=== PATIENT | female | born 1960 | race African-American/Black ===

== ENCOUNTER 2018-01-12 21:19 | Observation (INO) ==
[2018-01-12 21:46] LABS: Hematocrit 38.4 % (37.0-47.0); Mean Corpuscular Hemoglobin 27.3 pg (27-31); Mean Corpuscular Hgb Conc 36.5 g/dl (32-36); Mean Platelet Volume 9.7 fl (8-12.5); Neutrophil # 2.9 K/mm3 (1.3-6.0); Neutrophil % 39.6 % (42-75.0); Platelet Count 288 K/mm3 (150-450); Red Blood Count 5.12 M/mm3 (4.2-5.4); Red Cell Distribution Width 13.6 % (11.5-14.0); White Blood Count 7.3 K/mm3 (4.0-10.5)
[2018-01-12 21:59] LABS: Prothrombin Time (Patient) 10.4 Seconds (9.0-11.0)
--- NOTE | 2018-01-12 22:02 | ERNOTE ---
Chest Pain/Cardiac HPI Chief Complaint: Chest Pain Time Seen by Provider: 01/12/18 21:52 Source: patient Exam Limitations: no limitations Immunizations: IMMUNIZATION HX Immunizations Up to Date Yes History of Influenza Vaccine Yes Hx Pneumococcal Vaccination No Allergies/Adverse Reactions: Allergies Iodinated Contrast- Oral and IV Dye Allergy (Verified 01/12/18 21:41) Iodine and Iodide Containing Produc Allergy (Verified 01/12/18 21:41) Home Medications: HOME MEDICATIONS Metoprolol Succinate [Toprol Xl] 100 mg PO DAILY 04/22/15 [Last Taken Unknown] Pantoprazole Sodium [Protonix] 40 mg PO DAILY 01/31/16 [Last Taken Unknown] aspirin 81 mg tablet,delayed release 81 mg PO DAILY 11/30/17 [Last Taken Unknown ] atorvastatin 40 mg tablet 40 mg PO DAILY 11/30/17 [Last Taken Unknown] clotrimazole-betamethasone 1 %-0.05 % topical cream 1 applic TP BID 11/30/17 [ Last Taken Unknown] gabapentin 300 mg capsule 300 mg PO TID 11/30/17 [Last Taken Unknown] lisinopril 40 mg tablet 40 mg PO DAILY 11/30/17 [Last Taken Unknown] montelukast 10 mg tablet 10 mg PO QPM 11/30/17 [Last Taken Unknown] lorazepam 1 mg tablet 1 mg PO BID PRN #60 tab 12/14/17 [Last Taken Unknown] methimazole 5 mg tablet 5 mg PO DAILY 12/16/17 [Last Taken Unknown] baclofen 10 mg tablet See Label Instructions PO BID PRN #30 tab 01/03/18 [Last Taken Unknown] hydrochlorothiazide 12.5 mg tablet 12.5 mg PO DAILY #30 tab 01/04/18 [Last Taken Unknown] Narrative: Pt states that she awoke at 03:00 this am with left sided chest pain and shortness of breath. It has persisted throughout the day and she went to work but could not work through the pain and came to the ED. Timing: constant Severity/Quality: moderate, pressure Location: left chest Chest Pain Radiation: shoulders - left Activities at Onset: sleep Modifying Factors - Improves: Present: nothing Nitro Today/Relief: 0.4 mg x 1, provided by EMS Aspirin Treatment Today: 325 mg x 1, provided by EMS Associated Symptoms: Present: headache, shortness of breath, diaphoresis - that is common for her. Absent: dizziness Review of Systems - Review of Systems Constitutional: Absent: recent illness, fever, chills EYE: Absent: vision changes Respiratory: Present: See HPI. Absent: cough Cardiology: Present: See HPI Gastrointestinal/Abdominal: Absent: nausea, vomiting, abdominal pain Genitourinary: Absent: dysuria Musculoskeletal: Present: back pain - chronic Skin: Absent: rash Neurological: Present: tingling - in left arm Endocrine: Present: excessive sweating - frequently Hematologic/Lymphatic: Absent: easy bruising, easy bleeding Medical History (Last Reviewed 01/12/18 @ 22:01 by Ronnie Santana DO) Weight loss (Acute) Onset Date: Unknown Tobacco abuse (Acute) Onset Date: Unknown Thyroid nodule (Acute) Onset Date: Unknown Shortness of breath (Acute) Onset Date: Unknown Postmenopausal bleeding (Acute) Onset Date: Unknown Onychomycosis (Acute) Onset Date: Unknown Night sweats (Acute) Onset Date: Unknown Lumbar back pain with radiculopathy affecting right lower extremity (Acute) Onset Date: Unknown Iliac artery stenosis, bilateral (Acute) Onset Date: Unknown Hyperthyroidism (Acute) Onset Date: Unknown Hypertension (Acute) Onset Date: Unknown Hyperlipidemia (Acute) Onset Date: Unknown Aneurysm (Acute) Onset Date: Unknown Graves disease (Acute) Onset Date: Unknown GERD (gastroesophageal reflux disease) (Acute) Onset Date: Unknown Uterine fibroid (Acute) Onset Date: Unknown Fatigue (Acute) Onset Date: Unknown Dysphasia (Acute) Onset Date: Unknown Dizziness (Acute) Onset Date: Unknown Difficulty swallowing (Acute) Onset Date: Unknown Surgical History: Surgical History (Last Reviewed 01/12/18 @ 22:01 by Ronnie Santana DO) H/O section Onset Date: ~1995 History of esophagogastroduodenoscopy (EGD) Onset Date: ~2013 History of salpingo-oophorectomy Onset Date: ~05/2017 Hx of cerebral aneurysm repair Onset Date: ~2006 S/P laparoscopic hysterectomy Onset Date: ~05/2017 S/P thyroid biopsy Onset Date: ~2014 breast cyst removal Onset Date: ~1982 Family History: Family History (Last Reviewed 01/12/18 @ 21:41 by Jamia Wilkins RN) Father Hypertension Prostate cancer Lung cancer Grandmother Cancer Mother Hypertension Liver cancer Sister Myocardial infarction Social History: Preferred Language Setswana Smoking Status Current every day smoker Psych History Hx of Anxiety Alcohol Use occasionally Drug Use none Physical Exam - Physical Exam General Appearance: Present: wd/wn, alert, no apparent distress Head Exam: Present: normal inspection, no evidence of injury Eye Exam: Normal inspection: bilateral Ears, Nose, Throat: Present: normal ENT inspection Neck: Present: normal inspection, supple Respiratory: Present: no respiratory distress, normal breath sounds, no accessory muscle use, lungs clear Cardiovascular/Chest: Present: regular rate, rhythm, no murmur, normal peripheral pulses, chest tenderness - left upper chest Gastrointestinal/Abdominal: Present: normal bowel sounds, nontender, nondistended, soft Back Exam: Present: normal inspection, normal range of motion Extremity Exam: Present: normal inspection, normal range of motion, no edema Neurological Exam: Present: alert, oriented, normal mood/affect, no motor/ sensory deficits Skin Exam: Present: normal color, warm/dry Lymphatic Exam: Present: no adenopathy ED Progress - Results and Orders Patient's Lab Results:: I have reviewed the patient's lab results. Results and Orders: Laboratory Tests 01/12/18 01/12/18 01/12/18 21:45 21:45 21:45 WBC 7.3 Hgb 14.0 Hct 38.4 Plt Count 288 PT 10.4 INR (Anticoag Therapy) 1.04 PTT ([place]) 27.4 Sodium 125 L Potassium 4.3 D Chloride 93 L BUN 13 D Creatinine 0.95 Random Glucose 158 H Calcium 8.4 AST 31 ALT 13 L Alkaline Phosphatase 129 Troponin I Less than 0.017 Albumin 3.1 L Ur Random Sodium 01/13/18 00:46 WBC Hgb Hct Plt Count PT INR (Anticoag Therapy) PTT ([place]) Sodium Potassium Chloride BUN Creatinine Random Glucose Calcium AST ALT Alkaline Phosphatase Troponin I Albumin Ur Random Sodium 23 - Vital Signs Patient's Vital Signs:: I have reviewed the patient's vital signs. Vital Signs: Vital Signs 01/12/18 21:19 01/12/18 21:25 Temperature 36.5 C Pulse Rate 69 69 Respiratory Rate 18 Blood Pressure 115/77 O2 Sat by Pulse Oximetry 96 - EKG EKG: NSR, other - early repolarization EKG read: Interp. by me - X-Ray X-Ray #1 X-Ray: chest Interpretation: Interp. by me X-ray Comments: No infiltrate or effusion. Normal cardiac size. - CT/Ultrasound CT/Ultrasound Narrative: CT head w/o. No acute changes. Changes of previous craniotomy and metallic clip in the right middle fossa. - Progress/Reassessment Chief Complaint: Chest Pain Progress Note-Subjective: 01/13/18 01:[address] Chappell about admission. She agrees with obs admission. Departure Clinical Impression: Hyponatremia Chest pain Qualifiers: Chest pain type: unspecified Qualified Code(s): R07.9 - Chest pain, unspecified - Departure Disposition: Still a patient Condition: Good Referrals: Ronna Cortés FNP [Primary Care Provider] -
[2018-01-12 22:05] LABS: ALT 13 U/L (19-67); AST 31 U/L (0-48); Albumin * 3.1 gm/dl (3.4-5.0); Alkaline Phosphatase * 129 U/L (50-170); BUN/Creatinine Ratio 13.7 (9.0-21.6); Bilirubin, Total 0.9 mg/dL (0.0-1.1); Blood Urea Nitrogen 13 mg/dL (3-23); Ca. Corrected For Albumin 8.8 mg/dL (8.4-10.2); Calcium * 8.4 mg/dL (7.9-10.9); Carbon Dioxide 23.3 mmol/L (24-32.6); Chloride 93 mmol/L (97-106); Glucose * 158 mg/dL (70-110); INR 1.04 INR (0.90-1.10); Partial Thrombolplastin Time 27.4 Seconds (24-32); Potassium 4.3 mmol/L (3.4-4.6); Sodium 125 mmol/L (132-142); Total Protein 7.2 gm/dL (6.2-8.2); Troponin I Less than 0.017 ng/mL (0.00-0.10)
[2018-01-13] MEDS ORDERED: KETOROLAC TROMETHAMINE 30 MG/ML VIAL ONE (00:27)
[2018-01-13] MEDS ORDERED: KETOROLAC TROMETHAMINE 30 MG/ML VIAL IV ONE (00:27)
[2018-01-13 04:19] LABS: Sodium 130 mmol/L (132-142); Troponin I Less than 0.017 ng/mL (0.00-0.10)
[2018-01-13] MEDS ORDERED: ACETAMINOPHEN 325 MG TABLET PO PRN (04:19)
[2018-01-13 05:04] LABS: Anion Gap 15.1 mmol/L (6.8-13.8); BUN/Creatinine Ratio 13.2 (9.0-21.6); Carbon Dioxide 23.3 mmol/L (24-32.6); Estimated Creat Clear 42.6; Potassium 3.4 mmol/L (3.4-4.6)
--- NOTE | 2018-01-13 08:14 | HP ---
Chief Complaint - Chief Complaint Date of Service: 01/13/18 Time of Service: 07:59 Chief Complaint: Chest pain History of Present Illness: The patient is an female who presented to the ED with complaints of chest tightness. She states the chest tightness is located substernal and radiates into her left arm. The tightness started Wednesday (01/12) around 3AM and woke the patient up from sleep. She states she had associated severe shortness of breath as well. She states she went to work but was unable to stand and work secondary to her shortness of breath and chest tightness so she came to the ED for further evaluation. She states that the chest tightness is never completely gone away since it started but she has noticed that it gets worse when she is up and moving around more active and is better when she is resting. She also states that since the chest tightness started on Wednesday morning, she has had nausea and vomiting as well as feeling really sweaty and thought she was having hot flashes. The patient also admits to having a right-sided headache. She states she has frequent chronic headaches but for the last 3 days her headache seems to be bothering her more than usual. Unfortunately I do not have any records but the patient states that she has a history of a ruptured brain aneurysm and underwent surgery for the aneurysm in August 2006. The patient is unsure where the aneurysm was and what treatment was completed. Medical History (Last Reviewed 01/13/18 @ 02:54 by Dorcas Paulino RN) Weight loss (Acute) Onset Date: Unknown Tobacco abuse (Acute) Onset Date: Unknown Thyroid nodule (Acute) Onset Date: Unknown Shortness of breath (Acute) Onset Date: Unknown Postmenopausal bleeding (Acute) Onset Date: Unknown Onychomycosis (Acute) Onset Date: Unknown Night sweats (Acute) Onset Date: Unknown Lumbar back pain with radiculopathy affecting right lower extremity (Acute) Onset Date: Unknown Iliac artery stenosis, bilateral (Acute) Onset Date: Unknown Hyperthyroidism (Acute) Onset Date: Unknown Hypertension (Acute) Onset Date: Unknown Hyperlipidemia (Acute) Onset Date: Unknown Aneurysm (Acute) Onset Date: Unknown Graves disease (Acute) Onset Date: Unknown GERD (gastroesophageal reflux disease) (Acute) Onset Date: Unknown Uterine fibroid (Acute) Onset Date: Unknown Fatigue (Acute) Onset Date: Unknown Dysphasia (Acute) Onset Date: Unknown Dizziness (Acute) Onset Date: Unknown Difficulty swallowing (Acute) Onset Date: Unknown Surgical History: Surgical History (Last Reviewed 01/13/18 @ 02:54 by Dorcas Paulino RN) H/O section Onset Date: ~1995 History of esophagogastroduodenoscopy (EGD) Onset Date: ~2013 History of salpingo-oophorectomy Onset Date: ~05/2017 Hx of cerebral aneurysm repair Onset Date: ~2006 S/P laparoscopic hysterectomy Onset Date: ~05/2017 S/P thyroid biopsy Onset Date: ~2014 breast cyst removal Onset Date: ~1982 Family History: Family History (Last Reviewed 01/13/18 @ 02:54 by Dorcas Paulino RN) Father Hypertension Prostate cancer Lung cancer Grandmother Cancer Mother Hypertension Liver cancer Sister Myocardial infarction Social History: Patient Lives/Resources 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 Smoking Status Current every day smoker Have you smoked in the past 12 Yes months Do you dip or chew tobacco No Psych History Hx of Anxiety Alcohol Use occasionally Drug Use none Review Of Systems (GEN) - Review of Systems Generalized/Overall Review: Present: Weakness, Diaphoresis, Fatigue Respiratory: Present: Shortness of Breath Cardiac: Present: Chest Pain Abdominal: Present: Nausea, Vomiting. Absent: Hematemesis, Abdominal Pain Genitourinary: Present: No Symptoms Reported Neurological: Present: Headache Misc: All systems neg except as marked Immunizations: IMMUNIZATION HX Immunizations Up to Date Yes History of Influenza Vaccine Yes Hx Pneumococcal Vaccination No Allergies/Adverse Reactions: Allergies Allergy/AdvReac Type Severity Reaction Status Date / Time Iodinated Contrast- Oral and Allergy Verified 01/12/18 21:41 IV Dye Iodine and Iodide Containing Allergy Verified 01/12/18 21:41 Produc Home Medications: HOME MEDICATIONS Metoprolol Succinate [Toprol Xl] 100 mg PO DAILY 04/22/15 [Last Taken Unknown] Pantoprazole Sodium [Protonix] 40 mg PO DAILY 01/31/16 [Last Taken Unknown] aspirin 81 mg tablet,delayed release 81 mg PO DAILY 11/30/17 [Last Taken Unknown ] atorvastatin 40 mg tablet 40 mg PO DAILY 11/30/17 [Last Taken Unknown] clotrimazole-betamethasone 1 %-0.05 % topical cream 1 applic TP BID 11/30/17 [ Last Taken Unknown] gabapentin 300 mg capsule 300 mg PO TID 11/30/17 [Last Taken Unknown] lisinopril 40 mg tablet 40 mg PO DAILY 11/30/17 [Last Taken Unknown] montelukast 10 mg tablet 10 mg PO QPM 11/30/17 [Last Taken Unknown] lorazepam 1 mg tablet 1 mg PO BID PRN #60 tab 12/14/17 [Last Taken Unknown] methimazole 5 mg tablet 5 mg PO DAILY 12/16/17 [Last Taken Unknown] baclofen 10 mg tablet See Label Instructions PO BID PRN #30 tab 01/03/18 [Last Taken Unknown] hydrochlorothiazide 12.5 mg tablet 12.5 mg PO DAILY #30 tab 01/04/18 [Last Taken Unknown] Exam - Exam Vital Signs: Vital Signs - Last Taken Temp 36.8 C 01/13/18 07:09 Pulse 74 01/13/18 07:09 Resp 18 01/13/18 07:09 BP 111/65 01/13/18 07:09 Pulse Ox 96 01/13/18 07:09 Constitutional: Present: Alert, Oriented x3, Cooperative, No distress ENT Exam: Present: hearing grossly normal, moist mucous membranes Eye Exam: bilateral eye: EOMI Respiratory: Present: lungs clear, normal breath sounds, no respiratory distress , no accessory muscle use Cardiovascular/Chest: Present: regular rate, rhythm Abdomen: Present: soft, nontender Skin Exam: Present: warm/dry Neurologic: Present: alert, normal mood/affect, oriented x 3 Appearance: Present: appropriate appearance, appropriate insight Eye contact: Present: cooperative Thoughts: Present: normal thought pattern, no apparent hallucination Diagnostic Studies: Abnormal Lab Results 01/12/18 01/12/18 01/13/18 Range/Units 21:45 21:45 04:00 MCV 75.0 L (78-100) fl MCHC 36.5 H (32-36) g/dl Neutrophils % 39.6 L (42-75.0) % Monocytes % 10.8 H (0.0-9) % Sodium 125 L 130 L (132-142) mmol/L Plasma Sodium 126 L (130-142) mmol/L Chloride 93 L (97-106) mmol/L Carbon Dioxide 23.3 L (24-32.6) mmol/L Anion Gap (6.8-13.8) mmol/L Random Glucose 158 H (70-110) mg/dL ALT 13 L (19-67) U/L Albumin 3.1 L (3.4-5.0) gm/dl 01/13/18 Range/Units 04:00 MCV (78-100) fl MCHC (32-36) g/dl Neutrophils % (42-75.0) % Monocytes % (0.0-9) % Sodium 130 L (132-142) mmol/L Plasma Sodium (130-142) mmol/L Chloride 95 L (97-106) mmol/L Carbon Dioxide 23.3 L (24-32.6) mmol/L Anion Gap 15.1 H (6.8-13.8) mmol/L Random Glucose 141 H (70-110) mg/dL ALT (19-67) U/L Albumin (3.4-5.0) gm/dl Laboratory Results WBC 7.3 K/mm3 (4.0-10.5) 01/12/18 21:45 RBC 5.12 M/mm3 (4.2-5.4) 01/12/18 21:45 Hgb 14.0 gm/dL (12.5-16.0) 01/12/18 21:45 Hct 38.4 % (37.0-47.0) 01/12/18 21:45 MCV 75.0 fl (78-100) L 01/12/18 21:45 MCH 27.3 pg (27-31) 01/12/18 21:45 MCHC 36.5 g/dl (32-36) H 01/12/18 21:45 RDW 13.6 % (11.5-14.0) 01/12/18 21:45 Plt Count 288 K/mm3 (150-450) 01/12/18 21:45 MPV 9.7 fl (8-12.5) 01/12/18 21:45 Immature Gran % (Auto) 0.40 % (0.001-0.429) 01/12/18 21:45 Immature Gran # (Auto) 0.03 K/mm3 (0.000-0.0310) 01/12/18 21:45 Neutrophils % 39.6 % (42-75.0) L 01/12/18 21:45 Lymphocytes % 47.9 % (20-51) 01/12/18 21:45 Monocytes % 10.8 % (0.0-9) H 01/12/18 21:45 Eosinophils % 1.0 % (0.0-3.0) 01/12/18 21:45 Basophils % 0.3 % (0.0-1.0) 01/12/18 21:45 Nucleated RBC % 0.0 k/mm3 (0-1) 01/12/18 21:45 Neutrophils # 2.9 K/mm3 (1.3-6.0) 01/12/18 21:45 Lymphocytes # 3.50 k/mm3 (1.5-3.5) 01/12/18 21:45 Monocytes # 0.8 k/mm3 (0.0-1.0) 01/12/18 21:45 Eosinophils # 0.1 k/mm3 (0.0-0.7) 01/12/18 21:45 Absolute Basophils 0.0 k/mm3 (0.0-0.1) 01/12/18 21:45 PT 10.4 Seconds (9.0-11.0) 01/12/18 21:45 INR (Anticoag Therapy) 1.04 INR (0.90-1.10) 01/12/18 21:45 PTT ([place]) 27.4 Seconds (24-32) 01/12/18 21:45 Sodium 130 mmol/L (132-142) L 01/13/18 04:00 Plasma Sodium 131 mmol/L (130-142) 01/13/18 04:00 Potassium 3.4 mmol/L (3.4-4.6) D 01/13/18 04:00 Chloride 95 mmol/L (97-106) L 01/13/18 04:00 Carbon Dioxide 23.3 mmol/L (24-32.6) L 01/13/18 04:00 Anion Gap 15.1 mmol/L (6.8-13.8) H 01/13/18 04:00 BUN 14 mg/dL (3-23) 01/13/18 04:00 Creatinine 1.06 mg/dL (0.4-1.4) 01/13/18 04:00 Est GFR (Non-Af Amer) 69 mL/min (60-130) 01/13/18 04:00 BUN/Creatinine Ratio 13.2 (9.0-21.6) 01/13/18 04:00 Random Glucose 141 mg/dL (70-110) H 01/13/18 04:00 Calcium 9.0 mg/dL (7.9-10.9) 01/13/18 04:00 Calcium Adj for Albumin 8.8 mg/dL (8.4-10.2) 01/12/18 21:45 Total Bilirubin 0.9 mg/dL (0.0-1.1) 01/12/18 21:45 AST 31 U/L (0-48) 01/12/18 21:45 ALT 13 U/L (19-67) L 01/12/18 21:45 Alkaline Phosphatase 129 U/L (50-170) 01/12/18 21:45 Troponin I Less than 0.017 ng/mL (0.00-0.10) 01/13/18 04:00 B-Natriuretic Peptide Cancelled 01/13/18 04:00 Total Protein 7.2 gm/dL (6.2-8.2) 01/12/18 21:45 Albumin 3.1 gm/dl (3.4-5.0) L 01/12/18 21:45 Ur Random Sodium 23 mmol/L (20-110) 01/13/18 00:46 Assessment/Plan - Narrative Narrative: Concern for ACS. At the time of my exam, patient had increased chest tightness. STAT EKG and cardiac enzymes ordered. EKG shows some changes, specifically I am concerned about V2 and V3. Possible 2mm ST elevation in V2 and V3 vs. early repolarization with difference in lead placement. Await cardiac enzymes. I will have the EKGs faxed to [facility] for cardiology to review. I appreciate their time and input. Further recommendations pending [facility] consult and lab results. - Assessment/Plan (1) ACS (acute coronary syndrome) Problem: Suspected (2) Chest pain Problem: Acute Qualifiers: Chest pain type: unspecified Qualified Code(s): R07.9 - Chest pain, unspecified (3) Hyponatremia Problem: Acute (4) Shortness of breath Problem: Acute (5) Aneurysm Problem: Chronic
[2018-01-13 08:29] LABS: Anion Gap 12.8 mmol/L (6.8-13.8); BUN/Creatinine Ratio 11.8 (9.0-21.6); Blood Urea Nitrogen 13 mg/dL (3-23); CK Total * 157 U/L (0-259); CKMB 0.8 ng/mL (0.0-9.0); Calcium * 8.9 mg/dL (7.9-10.9); Chloride 96 mmol/L (97-106); Glucose * 143 mg/dL (70-110); Potassium 3.8 mmol/L (3.4-4.6); Sodium 131 mmol/L (132-142)
[2018-01-13 08:33] LABS: Troponin I Less than 0.017 ng/mL (0.00-0.10)
[2018-01-13 08:38] VITALS: BP 154/84
[2018-01-13] MEDS ORDERED: ACETAMINOPHEN 500 MG TABLET PO ONE (08:50)
--- NOTE | 2018-01-13 08:56 | DS ---
(1) ACS (acute coronary syndrome) Problem: Ruled-out (2) Chest pain Problem: Acute Qualifiers: Chest pain type: unspecified Qualified Code(s): R07.9 - Chest pain, unspecified (3) Hyponatremia Problem: Acute (4) Shortness of breath Problem: Acute (5) Aneurysm Problem: Chronic (6) Anxiety Diagnosis(s): Acute on Chronic Problem: Acute (7) Panic attack Diagnosis(s): Acute on Chronic Problem: Acute Description of Stay: ADMISSION DATE: 01/13/2018 DISCHARGE DATE: 01/13/2018 ADMISSION HPI: The patient is an female who presented to the ED with complaints of chest tightness. She states the chest tightness is located substernal and radiates into her left arm. The tightness started Wednesday (01/12) around 3AM and woke the patient up from sleep. She states she had associated severe shortness of breath as well. She states she went to work but was unable to stand and work secondary to her shortness of breath and chest tightness so she came to the ED for further evaluation. She states that the chest tightness is never completely gone away since it started but she has noticed that it gets worse when she is up and moving around more active and is better when she is resting. She also states that since the chest tightness started on Wednesday morning, she has had nausea and vomiting as well as feeling really sweaty and thought she was having hot flashes. The patient also admits to having a right-sided headache. She states she has frequent chronic headaches but for the last 3 days her headache seems to be bothering her more than usual. Unfortunately I do not have any records but the patient states that she has a history of a ruptured brain aneurysm and underwent surgery for the aneurysm in August 2006. The patient is unsure where the aneurysm was and what treatment was completed. HOSPITAL COURSE: The patient was admitted to the hospital for chest pain. There was initial concern for ACS the AM of admission when I saw the patient but EKGs were reviewed with Cardiology at [facility] who reports the EKG shows repolarization. I appreciate their assistance in this patients care. Her repeat cardiac enzymes were unremarkable. After further discussion with the patient, she states that she has a history of anxiety and panic attacks and feels like maybe that is what she was experiencing. When asked if her symptoms felt like the same symptoms she gets during her episodes of anxiety and panic attacks, she stated that yes it felt the same. The patient was chest pain free at the time of discharge. The patient was also found to be hyponatremic with a sodium of 126 on admission. Work-up consistent with clinical presentation of hypotonic hypovolemic hyponatremia most likely secondary to increased sweating and N/V the patient experienced prior to arrival in the ED. The patient was given IVF hydration with NS and her sodium level was improved to 132 at the time of discharge. I would recommend that her PCP consider checking a BMP to monitor the patient's sodium level at her follow-up visit. The patient was discharged home in stable condition. She was instructed to follow-up with her PCP within 1 week. If the patient follows with Psychiatry, I would also recommend that she follow-up with them within the next 1-2 weeks. FOLLOW-UP APPOINTMENTS: -PCP within 1 week -Consider checking BMP to monitor sodium level at follow-up visit with PCP -Psychiatry within 1-2 (if patient follows with psychiatry) NEW OR CHANGED MEDICATIONS: -None DISCONTINUED MEDICATIONS: -None RADIOLOGY REPORTS: PA and lateral CXR on 01/12/2018: No acute cardiopulmonary disease identified. Head CT without contrast on 01/12/2018: 1. No acute intracranial process. If there is continued clinical concern, additional evaluation is recommended. 2. Previous aneurysmal clipping involving the right middle cerebral artery with associated encephalomalacia changes in the right frontal parietal lobe, unchanged. Procedures Performed: none Results and Findings: Lab Pending Results 01/12/18 21:45: WBC 7.3, RBC 5.12, Hgb 14.0, Hct 38.4, MCV 75.0 L, MCH 27.3, MCHC 36.5 H, RDW 13.6, Plt Count 288, MPV 9.7, Immature Gran % (Auto) 0.40, Immature Gran # (Auto) 0.03, Neutrophils % 39.6 L, Lymphocytes % 47.9, Monocytes % 10.8 H, Eosinophils % 1.0, Basophils % 0.3, Nucleated RBC % 0.0, Neutrophils # 2.9, Lymphocytes # 3.50, Monocytes # 0.8, Eosinophils # 0.1, Absolute Basophils 0.0 01/12/18 21:45: PT 10.4, INR (Anticoag Therapy) 1.04, PTT ([place]) 27.4 01/12/18 21:45: Sodium 125 L, Plasma Sodium 126 L, Potassium 4.3 D, Chloride 93 L, Carbon Dioxide 23.3 L, Anion Gap 13.0, BUN 13 D, Creatinine 0.95, Est GFR (Non-Af Amer) 78, BUN/Creatinine Ratio 13.7, Random Glucose 158 H, Calcium 8.4, Calcium Adj for Albumin 8.8, Total Bilirubin 0.9, AST 31, ALT 13 L, Alkaline Phosphatase 129, Troponin I Less than 0.017, Total Protein 7.2, Albumin 3.1 L 01/13/18 00:46: Ur Random Sodium 23 01/13/18 04:00: Sodium 130 L, Troponin I Less than 0.017 01/13/18 04:00: B-Natriuretic Peptide Cancelled 01/13/18 04:00: Sodium 130 L, Plasma Sodium 131, Potassium 3.4 D, Chloride 95 L , Carbon Dioxide 23.3 L, Anion Gap 15.1 H, BUN 14, Creatinine 1.06, Est GFR (Non -Af Amer) 69, BUN/Creatinine Ratio 13.2, Random Glucose 141 H, Calcium 9.0 01/13/18 07:25: Sodium 131 L, Plasma Sodium 132, Potassium 3.8, Chloride 96 L, Carbon Dioxide 26.0, Anion Gap 12.8, BUN 13, Creatinine 1.10, Est GFR (Non-Af Amer) 66, BUN/Creatinine Ratio 11.8, Random Glucose 143 H, Calcium 8.9, Creatine Kinase 157, CK-MB (CK-2) 0.8, CK-MB (CK-2) Rel Index 0.5, Troponin I Less than 0.017 Discharge Location: Home Disposition: Home self-care Condition: Stable Discharge Activity: Activity as tolerated Discharge Diet: Resume usual diet Referrals: Ronna Cortés FNP [Primary Care Provider] - Problem Oriented Discharge Instructions to Patient/Family: Hyponatremia, Nonspecific Chest Pain, [id number] Additional Patient Instructions (free text): -Follow-up with PCP, Ronna Cortés, early next week on 01-17-18 at 2:30pm. Complete Home Medications List: Complete Home Medication List: Metoprolol Succinate [Toprol Xl] 100 mg PO DAILY 04/22/15 Pantoprazole Sodium [Protonix] 40 mg PO DAILY 01/31/16 aspirin 81 mg tablet,delayed release 81 mg PO DAILY 11/30/17 atorvastatin 40 mg tablet 40 mg PO DAILY 11/30/17 clotrimazole-betamethasone 1 %-0.05 % topical cream 1 applic TP BID 11/30/17 gabapentin 300 mg capsule 300 mg PO TID 11/30/17 lisinopril 40 mg tablet 40 mg PO DAILY 11/30/17 montelukast 10 mg tablet 10 mg PO QPM 11/30/17 lorazepam 1 mg tablet 1 mg PO BID PRN #60 tab 12/14/17 methimazole 5 mg tablet 5 mg PO DAILY 12/16/17 baclofen 10 mg tablet See Label Instructions PO BID PRN #30 tab 01/03/18 hydrochlorothiazide 12.5 mg tablet 12.5 mg PO DAILY #30 tab 01/04/18
== END 2018-01-13 09:29 | disposition home or self-care (01) ==
LOC: MS 21:19 → ER 21:19 → MS 01-13 02:25
PROVIDERS: ADMIT Internal Medicine; ATTEND Internal Medicine
DX: E87.1 Hypo-osmolality and hyponatremia; F41.0 Panic disorder [episodic paroxysmal anxiety]; I10 Essential (primary) hypertension; F17.210 Nicotine dependence, cigarettes, uncomplicated; R07.9 Chest pain, unspecified; R06.02 Shortness of breath; E78.5 Hyperlipidemia, unspecified; R51 Headache; E05.90 Thyrotoxicosis, unspecified without thyrotoxic crisis or storm; Z86.79 Personal history of other diseases of the circulatory system
CPT/HCPCS: 36415; 70450; 71020; 71046; 80048; 80053; 82550; 82553; 83519; 83880; 83930; 83935; 84295; 84300; 84439; 84443; 84481; 84484; 85025; 85610; 85730; 93005; 96374; 99285; G0378

== ENCOUNTER 2018-04-29 19:57 | Observation (INO) ==
[2018-04-29 20:16] LABS: Hematocrit 38.4 % (37.0-47.0); Hemoglobin 13.8 gm/dL (12.5-16.0); Mean Corpuscular Hemoglobin 27.7 pg (27-31); Mean Corpuscular Hgb Conc 35.9 g/dl (32-36); Mean Platelet Volume 9.4 fl (8-12.5); Neutrophil # 4.7 K/mm3 (1.3-6.0); Neutrophil % 51.9 % (42-75.0); Platelet Count 287 K/mm3 (150-450); Red Blood Count 4.99 M/mm3 (4.2-5.4); Red Cell Distribution Width 13.8 % (11.5-14.0); White Blood Count 9.1 K/mm3 (4.0-10.5)
[2018-04-29] MEDS ORDERED: NORMAL SALINE 1,000 ML IV ONE (20:21)
--- NOTE | 2018-04-29 20:35 | ERNOTE ---
Syncope ER HPI Date of Service: 04/29/18 Stated Complaint: dizziness Time Seen by Provider: 04/29/18 20:15 Source: patient, RN notes reviewed Exam Limitations: no limitations Immunizations: IMMUNIZATION HX Immunizations Up to Date Yes History of Influenza Vaccine No Hx Pneumococcal Vaccination No Allergies/Adverse Reactions: Allergies Iodinated Contrast- Oral and IV Dye Allergy (Verified 04/29/18 20:01) Iodine and Iodide Containing Produc Allergy (Verified 04/29/18 20:01) Home Medications: HOME MEDICATIONS clotrimazole-betamethasone 1 %-0.05 % topical cream 1 applic TP BID 11/30/17 [Last Taken Unknown] gabapentin 300 mg capsule 300 mg PO TID 11/30/17 [Last Taken Unknown] montelukast 10 mg tablet 10 mg PO QPM 11/30/17 [Last Taken Unknown] methimazole 5 mg tablet 5 mg PO DAILY 12/16/17 [Last Taken Unknown] baclofen 10 mg tablet See Rx Instructions PO BID PRN #30 tab 01/03/18 [Last Taken Unknown] aspirin 81 mg tablet,delayed release 81 mg PO DAILY #90 tab 02/11/18 [Last Taken Unknown] lisinopril 40 mg tablet 40 mg PO DAILY #90 tab 02/17/18 [Last Taken 03/10/18 06:00] cane See Dose Instructions .ROUTE .MEDSUPPLY #1 ea NS 03/01/18 [Last Taken Unknown] albuterol sulfate HFA 90 mcg/actuation aerosol inhaler 2 inh IH Q6H PRN #18 g 03/10/18 [Last Taken Unknown] atorvastatin 40 mg tablet 40 mg PO DAILY #90 tab 03/18/18 [Last Taken Unknown] hydrochlorothiazide 12.5 mg tablet 12.5 mg PO DAILY #30 tab 03/18/18 [Last Taken Unknown] lorazepam 1 mg tablet 1 mg PO BID PRN #60 tab 03/18/18 [Last Taken Unknown] metoprolol succinate ER 100 mg tablet,extended release 24 hr 100 mg PO DAILY #90 tab 03/18/18 [Last Taken Unknown] pantoprazole 40 mg tablet,delayed release 40 mg PO DAILY #30 tab 03/18/18 [Last Taken Unknown] sertraline 50 mg tablet 50 mg PO DAILY #30 tab 03/18/18 [Last Taken Unknown] - History of Present Illness Narrative: Radha is a 58 year old female brought to the ED by ambulance for syncopal episodes. This has happened 3 times since 10 a.m. today. She is unsure how long each episode lasted. One episode was apparently witnessed by her landlord, but he is not available for any history. She reports that she has been having vomiting and diarrhea for 2 days. She also reports chest heaviness. She is complaining of pain in her head and neck that she believes she may have injured during the episodes. Date (Duration): 04/29/18 Time (Timing): 10:00 Prior Episodes: Present: multiple episodes today Symptoms prior to episode: Present: none Activity at time of episode: Present: standing Location of Injury: Present: head, neck Current Symptoms: Present: back to normal Prior Treament: Denies: recently seen Review of Systems - Review of Systems Constitutional: Present: recent illness, fatigue, malaise EYE: Absent: eye pain, vision changes ENT: Absent: ear pain, nose congestion, sore throat Respiratory: Present: cough. Absent: shortness of breath Cardiology: Present: syncope. Absent: chest pain, palpitations, edema Gastrointestinal/Abdominal: Present: nausea, vomiting, diarrhea, eating less, drinking less. Absent: abdominal pain Genitourinary: Absent: dysuria, hematuria Musculoskeletal: Present: muscle pain, neck pain. Absent: back pain Skin: Absent: lesions, lumps Neurological: Present: headache, dizziness/light-headedness Endocrine: Present: no symptoms reported Hematologic/Lymphatic: Absent: easy bruising, easy bleeding Psych: Present: no symptoms reported Medical History (Last Reviewed 04/29/18 @ 21:14 by Jennifer Schaffer NP) Depression (Chronic) Onset Date: Unknown Anxiety (Chronic) Onset Date: Unknown Weight loss (Acute) Onset Date: Unknown Tobacco abuse (Acute) Onset Date: Unknown Thyroid nodule (Acute) Onset Date: Unknown Shortness of breath (Acute) Onset Date: Unknown Postmenopausal bleeding (Acute) Onset Date: Unknown Onychomycosis (Chronic) Onset Date: Unknown Night sweats (Acute) Onset Date: Unknown Lumbar back pain with radiculopathy affecting right lower extremity (Chronic) Onset Date: Unknown Iliac artery stenosis, bilateral (Acute) Onset Date: Unknown Hyperthyroidism (Chronic) Onset Date: Unknown Hypertension (Chronic) Onset Date: Unknown Hyperlipidemia (Chronic) Onset Date: Unknown Aneurysm (Chronic) Onset Date: Unknown Graves disease (Chronic) Onset Date: Unknown GERD (gastroesophageal reflux disease) (Chronic) Onset Date: Unknown Uterine fibroid (Acute) Onset Date: Unknown Fatigue (Acute) Onset Date: Unknown Dysphasia (Acute) Onset Date: Unknown Dizziness (Acute) Onset Date: Unknown Difficulty swallowing (Acute) Onset Date: Unknown Surgical History: Surgical History (Last Reviewed 04/29/18 @ 20:02 by Teresa Hou RN) H/O section Onset Date: ~1995 [id number] History of colonoscopy Onset Date: 03/10/18 03/10/18 Payal-normal, external hemorrhoids. Recheck 10 yrs. History of esophagogastroduodenoscopy (EGD) Onset Date: 03/10/182013 Tinguely-clotest negative. 03/10/18 Payal-clotest negative, mild benign reactive gastropathy/chemical gastritis. History of salpingo-oophorectomy Onset Date: ~05/2017 [facility] Hx of cerebral aneurysm repair Onset Date: ~2006 S/P laparoscopic hysterectomy Onset Date: ~05/2017 [facility] [employer] bleeding and uterine fibroids S/P thyroid biopsy Onset Date: ~2014 benign follicular/hyperplastic nodule with cystic degeneration breast cyst removal Onset Date: ~1982 Family History: Family History (Last Reviewed 04/29/18 @ 21:14 by Jennifer Schaffer NP) Father , age 72-prostate, lung ca Hypertension Prostate cancer Lung cancer Grandmother Cancer Mother , age 41-liver ca Hypertension Liver cancer Sister , age 55-[place] Myocardial infarction Sister Alive and well 4 sisters Brother Alive and well 3 brothers Aunt Cancer paternal-breast Social History: Preferred Language Cypriot Smoking Status Current every day smoker Have you smoked in the past 12 Yes months Psych History Hx of Anxiety Alcohol Use occasionally Drug Use none (Last Updated 03/28/18 @ 14:51 by Celi Vickers DPM) No Social History Section defined Physical Exam - Physical Exam General Appearance: Present: wd/wn, alert, no apparent distress Head Exam: Present: normal inspection, no evidence of injury Eye Exam: Normal inspection: bilateral, PERRL: bilateral, EOMI: bilateral Ears, Nose, Throat: Present: normal except -, dry mucous membranes Neck: Present: limited range of motion, tender lateral, tender posterior midline Respiratory: Present: no respiratory distress, normal breath sounds, no accessory muscle use, lungs clear Cardiovascular/Chest: Present: regular rate, rhythm, no murmur, normal peripheral pulses Gastrointestinal/Abdominal: Present: normal bowel sounds, nontender, nondistended, soft Extremity Exam: Present: normal inspection, normal range of motion Neurological Exam: Present: alert, oriented, normal mood/affect, no motor/sensory deficits Skin Exam: Present: normal color, warm/dry Progress - Results and Orders Patient's Lab Results:: I have reviewed the patient's lab results. - Vital Signs Patient's Vital Signs:: I have reviewed the patient's vital signs. Vital Signs: Vital Signs 04/29/18 19:57 04/29/18 20:04 Temperature 37.2 C Pulse Rate 94 93 Respiratory Rate 16 Blood Pressure 109/68 O2 Sat by Pulse Oximetry 97 - EKG EKG: NSR EKG read: Reviewed by me - X-Ray X-Ray #1 X-Ray: chest Interpretation: Interp. by me X-ray Comments: No acute cardiopulmonary abnormality noted - CT/Ultrasound CT/Ultrasound Narrative: CT HEAD W/O shows no acute intracranial abnormalities CT CERVICAL W/O shows no acute osseous abnormalities but thyroid is bulky and nodular (both per prelim report) - Progress/Reassessment Chief Complaint: Syncopal Episode Progress:: Improved Plan - Plan Plan: The patient has a low sodium at 129, as well as a low potassium at 2.9. She is mildly dehydrated, likely d/t vomiting and diarrhea. This may have contributed to her syncope, however she is not orthostatic. She initially reported some chest tightness but her EKG is stable and her troponin is negative. She also reported a headache and neck pain after falling. Her CT scans of the head and cervical spine are without acute findings. Chest xray is stable as well. Dr. Avila was contacted. The patient will be admitted for further hydration and correction of her electrolyte abnormalities. Departure Clinical Impression: Hyponatremia, Hypokalemia Syncopal episodes Qualifiers: Syncope type: unspecified Qualified Code(s): R55 - Syncope and collapse - Departure Disposition: Still a patient Condition: Stable Referrals: Ronna Cortés, BALAJI [Primary Care Provider] -
[2018-04-29 20:38] LABS: ALT 40 U/L (19-67); AST 68 U/L (0-48); Albumin * 3.5 gm/dl (3.4-5.0); Alkaline Phosphatase * 135 U/L (50-170); Anion Gap 17.7 mmol/L (6.8-13.8); BUN/Creatinine Ratio 8.3 (9.0-21.6); Bilirubin, Total 0.6 mg/dL (0.0-1.1); Blood Urea Nitrogen 8 mg/dL (3-23); Ca. Corrected For Albumin 8.9 mg/dL (8.4-10.2); Calcium * 8.8 mg/dL (7.9-10.9); Carbon Dioxide 23.2 mmol/L (24-32.6); Chloride 91 mmol/L (97-106); Glucose * 131 mg/dL (70-110); Potassium 2.9 mmol/L (3.4-4.6); Sodium 129 mmol/L (132-142); Total Protein 7.5 gm/dL (6.2-8.2); Troponin I Less than 0.017 ng/mL (0.00-0.10)
[2018-04-29 21:14] LABS: Urine Bilirubin Negative (NEGATIVE); Urine Blood Negative /ul (NEGATIVE); Urine Ketone Negative (NEGATIVE); Urine Nitrite Negative (NEGATIVE); Urine Protein Negative (NEGATIVE); Urine Specific Gravity <=1.005 SP.GR. (1.005-1.010); Urine Urobilinogen Normal (NORMAL)
[2018-04-29] MEDS ORDERED: POTASSIUM CHLORIDE IN WATER 100 ML IV ONE (21:19)
[2018-04-29 21:23] LABS: Urine Appearance Clear (CLEAR); Urine Color Yellow; Urine WBC 0-5 /hpf (0-5)
[2018-04-29 21:24] LABS: Urine Bacteria TRACE; Urine RBC None Seen /hpf (0-5)
[2018-04-29 21:30] LABS: Cocaine Ur Negative (NEGATIVE); Urine Barbiturate Negative (NEGATIVE); Urine Benzodiazepines Negative (NEGATIVE); Urine Opiates Negative (NEGATIVE); Urine PCP Negative (NEGATIVE); Urine THC Negative (NEGATIVE)
[2018-04-29] MEDS ORDERED: POTASSIUM CHLORIDE 20 MEQ TABLET.SA PO ONE (21:49)
[2018-04-29] MEDS: NORMAL SALINE 1,000 ML IV PRN (22:21)
[2018-04-30] MEDS ORDERED: ACETAMINOPHEN 325 MG TABLET PO PRN (03:56)
[2018-04-30] MEDS: NORMAL SALINE 1,000 ML IV PRN ×4 (05:23→14:59)
[2018-04-30] MEDS ORDERED: ALBUTEROL SULFATE 2.5 MG/0.5 ML VIAL.NEB IH PRN (08:45)
[2018-04-30] MEDS ORDERED: BACLOFEN 10 MG TABLET PO PRN (08:45)
[2018-04-30] MEDS ORDERED: LORazepam 1 MG TABLET PO PRN (08:45)
[2018-04-30] MEDS ORDERED: HYDROCHLOROTHIAZIDE 12.5 MG CAPSULE PO SCH (09:00)
[2018-04-30] MEDS ORDERED: LISINOPRIL 40 MG TABLET PO SCH (09:00)
[2018-04-30] MEDS ORDERED: ASPIRIN 81 MG TABLET.DR PO SCH (09:00)
[2018-04-30] MEDS ORDERED: METOPROLOL SUCCINATE 100 MG TABLET.SA PO SCH (09:00)
[2018-04-30] MEDS ORDERED: PANTOPRAZOLE SODIUM 40 MG TABLET.EC PO SCH (09:00)
[2018-04-30] MEDS ORDERED: CLOTRIMAZOLE/BETAMET DIPROP 15 APPL TUBE TP SCH (09:00)
[2018-04-30] MEDS ORDERED: METHIMAZOLE 10 MG TABLET PO SCH (09:00)
--- NOTE | 2018-04-30 09:18 | HP ---
Chief Complaint - Chief Complaint Date of Service: 04/30/18 Time of Service: 08:56 Chief Complaint: syncope History of Present Illness: Nita Abraham, is a 58-year-old female, patient of Ronna Mendoza, with past medical history of hypertension, hyperthyroidism, chronic low back pain with radiculopathy, who was admitted on 04/29/2018 because of syncopal episodes. 2 days prior to admission the patient started having diarrhea described as liquid, large volume, occurring almost every time she puts something in her mouth. One day prior to admission she started also vomiting each time she drinks water. She also started getting dizzy and passing out whenever she would stand up. Her landlord knocked on the door and saw her on the floor. She said that she must passed out for about 5 minutes and then she wakes up again. This happened 3 x since the morning of admission. She was then brought to the emergency room where she was found to have electrolyte imbalance with low sodium and low potassium. She was given 1 L in the emergency room and admitted for IV fluids. Currently patient is still orthostatic her blood pressure laying down was 188/111 with blood pressure dropping down to 154/102 on sitting and 157/108 when standing. She denies chest pain but admits to F/C. Medical History (Last Reviewed 04/29/18 @ 21:14 by Jennifer Schaffer NP) Depression (Chronic) Onset Date: Unknown Anxiety (Chronic) Onset Date: Unknown Weight loss (Acute) Onset Date: Unknown Tobacco abuse (Acute) Onset Date: Unknown Thyroid nodule (Acute) Onset Date: Unknown Shortness of breath (Acute) Onset Date: Unknown Postmenopausal bleeding (Acute) Onset Date: Unknown Onychomycosis (Chronic) Onset Date: Unknown Night sweats (Acute) Onset Date: Unknown Lumbar back pain with radiculopathy affecting right lower extremity (Chronic) Onset Date: Unknown Iliac artery stenosis, bilateral (Acute) Onset Date: Unknown Hyperthyroidism (Chronic) Onset Date: Unknown Hypertension (Chronic) Onset Date: Unknown Hyperlipidemia (Chronic) Onset Date: Unknown Aneurysm (Chronic) Onset Date: Unknown Graves disease (Chronic) Onset Date: Unknown GERD (gastroesophageal reflux disease) (Chronic) Onset Date: Unknown Uterine fibroid (Acute) Onset Date: Unknown Fatigue (Acute) Onset Date: Unknown Dysphasia (Acute) Onset Date: Unknown Dizziness (Acute) Onset Date: Unknown Difficulty swallowing (Acute) Onset Date: Unknown Surgical History: Surgical History (Last Reviewed 04/29/18 @ 20:02 by Teresa Hou RN) H/O section Onset Date: ~1995 [id number] History of colonoscopy Onset Date: 03/10/18 03/10/18 Payal-normal, external hemorrhoids. Recheck 10 yrs. History of esophagogastroduodenoscopy (EGD) Onset Date: 03/10/182013 Tinguely-clotest negative. 03/10/18 Payal-clotest negative, mild benign reactive gastropathy/chemical gastritis. History of salpingo-oophorectomy Onset Date: ~05/2017 [facility] Hx of cerebral aneurysm repair Onset Date: ~2006 S/P laparoscopic hysterectomy Onset Date: ~05/2017 [facility] [employer] bleeding and uterine fibroids S/P thyroid biopsy Onset Date: ~2014 benign follicular/hyperplastic nodule with cystic degeneration breast cyst removal Onset Date: ~1982 Family History: Family History (Last Reviewed 04/29/18 @ 21:14 by Jennifer Schaffer NP) Father , age 72-prostate, lung ca Hypertension Prostate cancer Lung cancer Grandmother Cancer Mother , age 41-liver ca Hypertension Liver cancer Sister , age 55-[place] Myocardial infarction Sister Alive and well 4 sisters Brother Alive and well 3 brothers Aunt Cancer paternal-breast Social History: Patient Lives/Resources Home Utilized Occupation [employer] Preferred Language Maltese Do you have any mu-ism or No cultural preference? Smoking Status Current every day smoker Have you smoked in the past 12 Yes months Psych History Hx of Anxiety Alcohol Use occasionally Drug Use none (Last Updated 03/28/18 @ 14:51 by Celi Vickers DPM) No Social History Section defined Review Of Systems (GEN) - Review of Systems Generalized/Overall Review: Present: Weakness, Chills, Fever EENTM: Absent: Blurred Vision Respiratory: Absent: Cough, Shortness of Breath Cardiac: Absent: Chest Pain, Edema, Palpitations Abdominal: Present: Nausea, Vomiting, Abdominal Pain, Diarrhea Genitourinary: Absent: Urgency, Frequency Musculoskeletal: Present: Back Pain Immunizations: IMMUNIZATION HX Immunizations Up to Date Yes History of Influenza Vaccine No Hx Pneumococcal Vaccination No Allergies/Adverse Reactions: Allergies Allergy/AdvReac Type Severity Reaction Status Date / Time Iodinated Contrast- Oral and Allergy Verified 04/29/18 23:02 IV Dye Iodine and Iodide Containing Allergy Verified 04/29/18 23:02 Produc Home Medications: HOME MEDICATIONS clotrimazole-betamethasone 1 %-0.05 % topical cream 1 applic TP BID 11/30/17 [Last Taken Unknown] gabapentin 300 mg capsule 300 mg PO TID 11/30/17 [Last Taken Unknown] montelukast 10 mg tablet 10 mg PO QPM 11/30/17 [Last Taken Unknown] methimazole 5 mg tablet 5 mg PO DAILY 12/16/17 [Last Taken Unknown] baclofen 10 mg tablet See Rx Instructions PO BID PRN #30 tab 01/03/18 [Last T aken Unknown] aspirin 81 mg tablet,delayed release 81 mg PO DAILY #90 tab 02/11/18 [Last Taken Unknown] lisinopril 40 mg tablet 40 mg PO DAILY #90 tab 02/17/18 [Last Taken 03/10/18 06:00] albuterol sulfate HFA 90 mcg/actuation aerosol inhaler 2 inh IH Q6H PRN #18 g 03/10/18 [Last Taken Unknown] atorvastatin 40 mg tablet 40 mg PO DAILY #90 tab 03/18/18 [Last Taken Unknown] lorazepam 1 mg tablet 1 mg PO BID PRN #60 tab 03/18/18 [Last Taken Unknown] metoprolol succinate ER 100 mg tablet,extended release 24 hr 100 mg PO DAILY #90 tab 03/18/18 [Last Taken Unknown] pantoprazole 40 mg tablet,delayed release 40 mg PO DAILY #30 tab 03/18/18 [Last Taken Unknown] sertraline 50 mg tablet 50 mg PO DAILY #30 tab 03/18/18 [Last Taken Unknown] Acetaminophen [Tylenol] 650 mg PO Q6H PRN #20 tablet 04/30/18 [Last Taken Unknown] Exam - Exam Vital Signs: Vital Signs - Last Taken Temp 36.9 C 04/30/18 06:36 Pulse 110 H 04/30/18 08:55 Resp 18 04/30/18 06:36 BP 182/95 H 04/30/18 06:36 Pulse Ox 97 04/30/18 06:36 Constitutional: Present: Alert, Oriented x3, Cooperative ENT Exam: Present: hearing grossly normal Eye Exam: bilateral eye: normal inspection, PERRL, EOMI Neck: Present: supple Respiratory: Present: normal breath sounds, No rales, No wheezing Cardiovascular/Chest: Present: regular rate, rhythm, no JVD, no murmur, tachycardia Abdomen: Present: soft, nondistended, tender, hypoactive Extremity: Present: no pedal edema, no calf tenderness Diagnostic Studies: Abnormal Lab Results 04/29/18 04/29/18 Range/Units 20:05 20:10 MCV 77.0 L (78-100) fl Monocytes % 12.2 H (0.0-9) % Monocytes # 1.1 H (0.0-1.0) k/mm3 Sodium 129 L (132-142) mmol/L Plasma Sodium 129 L (130-142) mmol/L Potassium 2.9 L (3.4-4.6) mmol/L Chloride 91 L (97-106) mmol/L Carbon Dioxide 23.2 L (24-32.6) mmol/L Anion Gap 17.7 H (6.8-13.8) mmol/L BUN/Creatinine Ratio 8.3 L (9.0-21.6) Random Glucose 131 H (70-110) mg/dL AST 68 H (0-48) U/L Laboratory Results WBC 9.1 K/mm3 (4.0-10.5) 04/29/18 20:10 RBC 4.99 M/mm3 (4.2-5.4) 04/29/18 20:10 Hgb 13.8 gm/dL (12.5-16.0) 04/29/18 20:10 Hct 38.4 % (37.0-47.0) 04/29/18 20:10 MCV 77.0 fl (78-100) L 04/29/18 20:10 MCH 27.7 pg (27-31) 04/29/18 20:10 MCHC 35.9 g/dl (32-36) 04/29/18 20:10 RDW 13.8 % (11.5-14.0) 04/29/18 20:10 Plt Count 287 K/mm3 (150-450) 04/29/18 20:10 MPV 9.4 fl (8-12.5) 04/29/18 20:10 Immature Gran % (Auto) 0.30 % (0.001-0.429) 04/29/18 20:10 Immature Gran # (Auto) 0.03 K/mm3 (0.000-0.0310) 04/29/18 20:10 Neutrophils % 51.9 % (42-75.0) 04/29/18 20:10 Lymphocytes % 34.3 % (20-51) 04/29/18 20:10 Monocytes % 12.2 % (0.0-9) H 04/29/18 20:10 Eosinophils % 0.8 % (0.0-3.0) 04/29/18 20:10 Basophils % 0.5 % (0.0-1.0) 04/29/18 20:10 Nucleated RBC % 0.0 k/mm3 (0-1) 04/29/18 20:10 Neutrophils # 4.7 K/mm3 (1.3-6.0) 04/29/18 20:10 Lymphocytes # 3.12 k/mm3 (1.5-3.5) 04/29/18 20:10 Monocytes # 1.1 k/mm3 (0.0-1.0) H 04/29/18 20:10 Eosinophils # 0.1 k/mm3 (0.0-0.7) 04/29/18 20:10 Absolute Basophils 0.1 k/mm3 (0.0-0.1) 04/29/18 20:10 Sodium 129 mmol/L (132-142) L 04/29/18 20:05 Plasma Sodium 129 mmol/L (130-142) L 04/29/18 20:05 Potassium 2.9 mmol/L (3.4-4.6) L 04/29/18 20:05 Chloride 91 mmol/L (97-106) L 04/29/18 20:05 Carbon Dioxide 23.2 mmol/L (24-32.6) L 04/29/18 20:05 Anion Gap 17.7 mmol/L (6.8-13.8) H 04/29/18 20:05 BUN 8 mg/dL (3-23) 04/29/18 20:05 Creatinine 0.96 mg/dL (0.4-1.4) 04/29/18 20:05 Est GFR (Non-Af Amer) 77 mL/min (60-130) D 04/29/18 20:05 BUN/Creatinine Ratio 8.3 (9.0-21.6) L 04/29/18 20:05 Random Glucose 131 mg/dL (70-110) H 04/29/18 20:05 Calcium 8.8 mg/dL (7.9-10.9) 04/29/18 20:05 Calcium Adj for Albumin 8.9 mg/dL (8.4-10.2) 04/29/18 20:05 Total Bilirubin 0.6 mg/dL (0.0-1.1) 04/29/18 20:05 AST 68 U/L (0-48) H 04/29/18 20:05 ALT 40 U/L (19-67) 04/29/18 20:05 Alkaline Phosphatase 135 U/L (50-170) 04/29/18 20:05 Troponin I Less than 0.017 ng/mL (0.00-0.10) 04/29/18 20:05 Total Protein 7.5 gm/dL (6.2-8.2) 04/29/18 20:05 Albumin 3.5 gm/dl (3.4-5.0) 04/29/18 20:05 Urine Color Yellow 04/29/18 21:09 Urine Appearance Clear (CLEAR) 04/29/18 21:09 Urine pH 6.0 pH (5.0-7.0) 04/29/18 21:09 Ur Specific [place] <=1.005 SP.GR. (1.005-1.010) 04/29/18 21:09 Urine Protein Negative mg/dL (NEGATIVE) 04/29/18 21:09 Urine Glucose (UA) Negative mg/dL (NEGATIVE) 04/29/18 21:09 Urine Ketones Negative mg/dL (NEGATIVE) 04/29/18 21:09 Urine Blood Negative /ul (NEGATIVE) 04/29/18 21:09 Urine Nitrate Negative (NEGATIVE) 04/29/18 21:09 Urine Bilirubin Negative mg/dl (NEGATIVE) 04/29/18 21:09 Urine Urobilinogen Normal EU/dl (NORMAL) 04/29/18 21:09 Ur Leukocyte Esterase Negative /ul (NEGATIVE) 04/29/18 21:09 Urine RBC None seen /hpf (0-5) 04/29/18 21:09 Urine WBC 0-5 /hpf (0-5) 12/07/18 21:09 Ur Epithelial Cells 0-5 /hpf (0-5) 04/29/18 21:09 Urine Bacteria Trace (NONE) 04/29/18 21:09 Urine Culture Comments No culture indicated 04/29/18 21:09 Urine Opiates Screen Negative (NEGATIVE) 04/29/18 21:09 Barbiturate Screen Negative (NEGATIVE) 04/29/18 21:09 Ur Phencyclidine Scrn Negative (NEGATIVE) 04/29/18 21:09 Urine Amphetamine Negative (NEGATIVE) 04/29/18 21:09 U Benzodiazepines Scrn Negative (NEGATIVE) 04/29/18 21:09 Urine Cocaine Screen Negative (NEGATIVE) 04/29/18 21:09 Urine Marijuana (THC) Negative (NEGATIVE) 04/29/18 21:09 Assessment/Plan - Assessment/Plan (1) Diarrhea Assessment: likely infectious- viral vs bacterial. will gt stooll for C&S, CDiff. Problem: Acute Qualifiers: Diarrhea type: unspecified type Qualified Code(s): R19.7 - Diarrhea, unspecified (2) Syncopal episodes Assessment: likely due to orthostasis. will increase IVF. Problem: Acute Qualifiers: Syncope type: unspecified Qualified Code(s): R55 - Syncope and collapse (3) Hyponatremia Assessment: due to diarrhea and vomiting. lindsey continue IVF NSS Problem: Resolved (4) Hypokalemia Assessment: due to diarrhea and vomiting Problem: Resolved (5) Low back pain Problem: Chronic (6) Hyperthyroidism Problem: Chronic (7) Hypertension Problem: Chronic Qualifiers:
[2018-04-30] MEDS ORDERED: ONDANSETRON HCL/PF 2 MG/ML VIAL IV PRN (09:23)
[2018-04-30] MEDS: GABAPENTIN 300 MG CAPSULE PO SCH ×3 (09:37→17:28)
[2018-04-30 09:41] LABS: Anion Gap 11.9 mmol/L (6.8-13.8); Calcium * 8.7 mg/dL (7.9-10.9); Carbon Dioxide 22.9 mmol/L (24-32.6); Estimated Creat Clear 61.2; Potassium 3.8 mmol/L (3.4-4.6)
[2018-04-30 09:49] LABS: Hematocrit 40.5 % (37.0-47.0); Hemoglobin 14.4 gm/dL (12.5-16.0); Mean Cell Volume 78.2 fl (78-100); Mean Corpuscular Hemoglobin 27.8 pg (27-31); Mean Corpuscular Hgb Conc 35.6 g/dl (32-36); Mean Platelet Volume 10.5 fl (8-12.5); Neutrophil # 4.6 K/mm3 (1.3-6.0); Neutrophil % 59.4 % (42-75.0); Platelet Count 279 K/mm3 (150-450); Red Blood Count 5.18 M/mm3 (4.2-5.4); Red Cell Distribution Width 13.9 % (11.5-14.0); White Blood Count 7.8 K/mm3 (4.0-10.5)
[2018-04-30] MEDS ORDERED: MONTELUKAST SODIUM 10 MG TABLET PO SCH (17:00)
--- NOTE | 2018-04-30 18:58 | DS ---
(1) Diarrhea Problem: Acute Qualifiers: Diarrhea type: unspecified type Qualified Code(s): R19.7 - Diarrhea, unspecified (2) Syncopal episodes Problem: Acute Qualifiers: Syncope type: unspecified Qualified Code(s): R55 - Syncope and collapse (3) Hyponatremia Problem: Resolved (4) Hypokalemia Problem: Resolved (5) Low back pain Problem: Chronic (6) Hyperthyroidism Problem: Chronic (7) Hypertension Problem: Chronic Qualifiers: Description of Stay: Nita Abraham, is a 58-year-old female, patient of Ronna Mendoza, with past medical history of hypertension, hyperthyroidism, chronic low back pain with radiculopathy, who was admitted on 04/29/2018 because of syncopal episodes. 2 days prior to admission the patient started having diarrhea described as liquid, large volume, occurring almost every time she puts something in her mouth. One day prior to admission she started also vomiting each time she drinks water. She also started getting dizzy and passing out whenever she would stand up. Her landlord knocked on the door and saw her on the floor. She said that she must passed out for about 5 minutes and then she wakes up again. This happened 3 x since the morning of admission. She was then brought to the emergency room where she was found to have electrolyte imbalance with low sodium and low potassium. She was given 1 L in the emergency room and admitted for IV fluids. Currently patient is still orthostatic her blood pressure laying down was 188/111 with blood pressure dropping down to 154/[address] and 157/108 when standing. She denies chest pain but admits to F/C. We continued with more IVF. She is no longer dizzy or feel like passing out when she stands. She is stable to be discharged tonight. She was encourage to increase her oral fluids and to take gatorade. She will hold her HCTZ for now and resume it when she is no longer having diarrhea. Procedures Performed: none Results and Findings: Lab Pending Results 04/29/18 20:05: Sodium 129 L, Plasma Sodium 129 L, Potassium 2.9 L, Chloride 91 L, Carbon Dioxide 23.2 L, Anion Gap 17.7 H, BUN 8, Creatinine 0.96, Est GFR (Non-Af Amer) 77 D, BUN/Creatinine Ratio 8.3 L, Random Glucose 131 H, Calcium 8.8, Calcium Adj for Albumin 8.9, Total Bilirubin 0.6, AST 68 H, ALT 40, Alkaline Phosphatase 135, Troponin I Less than 0.017, Total Protein 7.5, Albumin 3.5 04/29/18 20:10: WBC 9.1, RBC 4.99, Hgb 13.8, Hct 38.4, MCV 77.0 L, MCH 27.7, MCHC 35.9, RDW 13.8, Plt Count 287, MPV 9.4, Immature Gran % (Auto) 0.30, Immature Gran # (Auto) 0.03, Neutrophils % 51.9, Lymphocytes % 34.3, Monocytes % 12.2 H, Eosinophils % 0.8, Basophils % 0.5, Nucleated RBC % 0.0, Neutrophils # 4.7, Lymphocytes # 3.12, Monocytes # 1.1 H, Eosinophils # 0.1, Absolute Basophils 0.1 04/29/18 21:09: Urine Color Yellow, Urine Appearance Clear, Urine pH 6.0, Ur Specific [place] <=1.005, Urine Protein Negative, Urine Glucose (UA) Negative, Urine Ketones Negative, Urine Blood Negative, Urine Nitrate Negative, Urine Bilirubin Negative, Urine Urobilinogen Normal, Ur Leukocyte Esterase Negative, Urine RBC None seen, Urine WBC 0-5, Ur Epithelial Cells 0-5, Urine Bacteria Trace, Urine Culture Comments No culture indicated 04/29/18 21:09: Urine Opiates Screen Negative, Barbiturate Screen Negative, Ur Phencyclidine Scrn Negative, Urine Amphetamine Negative, U Benzodiazepines Scrn Negative, Urine Cocaine Screen Negative, Urine Marijuana (THC) Negative 04/30/18 09:30: WBC 7.8, RBC 5.18, Hgb 14.4, Hct 40.5, MCV 78.2, MCH 27.8, MCHC 35.6, RDW 13.9, Plt Count 279, MPV 10.5, Immature Gran % (Auto) 0.30, Immature Gran # (Auto) 0.02, Neutrophils % 59.4, Lymphocytes % 22.3, Monocytes % 16.0 H, Eosinophils % 1.5, Basophils % 0.5, Nucleated RBC % 0.0, Neutrophils # 4.6, Lymphocytes # 1.73, Monocytes # 1.2 H, Eosinophils # 0.1, Absolute Basophils 0.0 04/30/18 09:30: Sodium 135, Plasma Sodium 136, Potassium 3.8 D, Chloride 104, Carbon Dioxide 22.9 L, Anion Gap 11.9, BUN 5, Creatinine 0.71, Est GFR (Non-Af Amer) 109 D, BUN/Creatinine Ratio 7.0 L, Random Glucose 152 H, Calcium 8.7 Discharge Location: Home Disposition: Home self-care Condition: Stable Discharge Activity: Activity as tolerated Discharge Diet: Low salt Referrals: Ronna Cortés FNP [Primary Care Provider] - Additional Patient Instructions (free text): Follow up with her PCP next week. Prescriptions (Any new or edited meds): Acetaminophen [Tylenol] 650 mg PO Q6H PRN #20 tablet PRN Reason: Mild Pain (Pain Scale 1-3) Complete Home Medications List: Complete Home Medication List: clotrimazole-betamethasone 1 %-0.05 % topical cream 1 applic TP BID 11/30/17 gabapentin 300 mg capsule 300 mg PO TID 11/30/17 montelukast 10 mg tablet 10 mg PO QPM 11/30/17 methimazole 5 mg tablet 5 mg PO DAILY 12/16/17 baclofen 10 mg tablet See Rx Instructions PO BID PRN #30 tab 01/03/18 aspirin 81 mg tablet,delayed release 81 mg PO DAILY #90 tab 02/11/18 lisinopril 40 mg tablet 40 mg PO DAILY #90 tab 02/17/18 albuterol sulfate HFA 90 mcg/actuation aerosol inhaler 2 inh IH Q6H PRN #18 g 03/10/18 atorvastatin 40 mg tablet 40 mg PO DAILY #90 tab 03/18/18 lorazepam 1 mg tablet 1 mg PO BID PRN #60 tab 03/18/18 metoprolol succinate ER 100 mg tablet,extended release 24 hr 100 mg PO DAILY #90 tab 03/18/18 pantoprazole 40 mg tablet,delayed release 40 mg PO DAILY #30 tab 03/18/18 sertraline 50 mg tablet 50 mg PO DAILY #30 tab 03/18/18 Acetaminophen [Tylenol] 650 mg PO Q6H PRN #20 tablet 04/30/18
[2018-04-30 19:24] VITALS: BP 167/89
[2018-04-30] MEDS ORDERED: ROSUVASTATIN CALCIUM 20 MG TABLET PO SCH (21:00)
== END 2018-04-30 19:48 | disposition home or self-care (01) ==
LOC: MS 19:57 → ER 19:57 → MS 22:35
PROVIDERS: ADMIT Internal Medicine; ATTEND Internal Medicine
CPT/HCPCS: 36415; 70450; 71020; 71046; 72125; 74019; 74020; 80048; 80053; 80307; 81001; 84484; 85025; 87045; 87046; 87493; 90471; 90686; 93005; 96361; 96365; 99284; G0378; G0479